=== PATIENT | female | born 1995 | race Hispanic/Latino ===

== ENCOUNTER 2024-02-25 08:14 | Emergency (ER) | payer OTHER ==
[~2024-02-25] VITALS: Ht 152.4 cm; Wt 54.9 kg
[~2024-02-25 08:14] MED LIST: BENZ-39 PO; IBUP-2070 PO; ONDA-243 SL
[2024-02-25] MEDS: PANTOPRAZOLE 40 MG/VIAL IVP ONE (08:36)
[2024-02-25] MEDS: ONDANSETRON 4MG INJ IVP ONE (08:36)
[2024-02-25] MEDS: LACTATED RINGERS 1000ML 1,000 ML IV ONE (08:37)
[2024-02-25 08:42] LABS: BASOPHILS # (AUTO) 0.08 K/uL (0.00-0.20); BASOPHILS % (AUTO) 0.9 % (0.0-5.0); EOSINOPHILS # (AUTO) 0.26 K/uL (0.00-0.70); EOSINOPHILS % (AUTO) 2.9 % (0.0-8.0); HEMATOCRIT 40.1 % (36-48); IMMATURE GRANULOCYTE ABSOLUTE 0.02 K/uL (0-1); LYMPHOCYTES # (AUTO) 2.5 K/uL (1.0-4.8); LYMPHOCYTES % (AUTO) 27.4 % (21.0-51.0); MEAN CORPUSCULAR HEMOGLOBIN 26.8 pg (27.0-33.0); MEAN CORPUSCULAR HGB CONC 32.9 g/dL (32.0-36.0); MEAN CORPUSCULAR VOLUME 81.5 fL (79-99); MONOCYTES # (AUTO) 0.7 K/uL (0.1-1.0); MONOCYTES % (AUTO) 7.7 % (3.0-13.0); NEUTROPHILS # (AUTO) 5.5 K/uL (1.8-7.7); NEUTROPHILS % (AUTO) 60.9 % (40.0-77.0); PLATELET COUNT (AUTO) 329 K/uL (130-400); RED BLOOD CELL COUNT(AUTO) 4.92 MIL/uL (4.00-5.50); RED CELL DISTRIBUTION WIDTH 13.5 % (11.0-15.5); WHITE BLOOD COUNT (AUTO) 9.1 K/uL (4.8-10.8)
[2024-02-25 08:50] LABS: CREATININE 0.9 mg/dL (0.5-1.0); POTASSIUM 4.7 mmol/L (3.5-5.1)
[2024-02-25 08:52] LABS: AMPHET/METH SCREEN,URINE NEGATIVE (NEGATIVE); BARBITURATE SCREEN, URINE NEGATIVE (NEGATIVE); BENZODIAZEPINES SCREEN,URINE NEGATIVE (NEGATIVE); CANNABINOID SCREEN,URINE POSITIVE (NEGATIVE); COCAINE SCREEN,URINE NEGATIVE (NEGATIVE); OPIATE SCREEN,URINE NEGATIVE (NEGATIVE); PHENCYCLIDINE SCREEN,URINE NEGATIVE (NEGATIVE)
[2024-02-25 08:54] LABS: ALBUMIN 3.7 g/dL (3.5-5.0); BILIRUBIN,TOTAL 0.3 mg/dL (0.2-1.0); TOTAL PROTEIN, SERUM 7.2 g/dL (6.0-8.3)
[2024-02-25 08:54] LABS: HCG,QUALITATIVE URINE NEGATIVE (NEGATIVE)
[2024-02-25] MEDS: MAG/ALUM/SIMETH 30 ML UDCUP ONE (09:11)
[2024-02-25] MEDS: LIDOCAINE HCL 2% VISCOUS 15 ML UDCUP ONE (09:11)
[2024-02-25] MEDS: MAG/ALUM/SIMETH 30 ML UDCUP PO ONE (09:12)
[2024-02-25] MEDS: LIDOCAINE HCL 2% VISCOUS 15 ML UDCUP PO ONE (09:12)
[2024-02-25] MEDS ORDERED: IOHEXOL-350 75 ML VIAL IV ONE (10:41)
[2024-02-25] MEDS ORDERED: IOHEXOL 350 MG/ML 100ML INFUS..BTL IV ONE (11:19)
[2024-02-25 11:53] VITALS: BP 132/79; PULSE 70; RESP 16; O2SAT 100
[2024-02-25] MEDS ORDERED: ONDA-243 PO (12:13)
== END 2024-02-25 12:20 | disposition home or self-care (01) ==
LOC: EDH 08:14
DX: F12.10 Cannabis abuse, uncomplicated (principal); R11.2 Nausea with vomiting, unspecified; U07.0 Vaping-related disorder; F41.9 Anxiety disorder, unspecified; F32.A Depression, unspecified; Z79.899 Other long term (current) drug therapy; Z90.89 Acquired absence of other organs
CPT/HCPCS: 99285; 96374; 71270; 71045; 96361; 96375; 82550; 84484; 80053; 80305; 83690; 85025; 81025; 36415; 93005 ×2; J7120; J2405; C9113; Q9967; 96376